=== PATIENT | male | born 1965 | race Caucasian/White ===

== ENCOUNTER 2018-01-29 18:44 | Emergency (ER) | payer OTHER ==
[~2018-01-29] VITALS: Ht 190.5 cm; Wt 149.7 kg
[~2018-01-29 18:44] MED LIST: ALBUTEROL SULF8.5 GM IH; ALLOPURINOL300 MG PO; CIPROFLOXACIN500 MG PO; DILAUDID4 MG PO; FLAGYL250 MG PO; MAGNESIUM CITR296 ML PO
[2018-01-29] MEDS ORDERED: ROSUVASTATIN CA10 MG PO (18:57)
[2018-01-29] MEDS ORDERED: TRAMADOL HCL50 MG PO (19:57)
--- NOTE | 2018-01-30 12:14 | EKG ---
[facility] [address] [place] [address] Signed Normal sinus rhythm Normal ECG No previous ECGs available Confirmed by AVINASH HORNE MD ([id number] on 01/30/2018 12:14:35 PM Electronically Signed By: AVINASH HORNE MD 01/30/18 1214 PATIENT NAME: MOSSRENETTA Electrocardiogram DATE OF : 65 PHYSICIAN: AVINASH HORNE MD REPORT #: [id number] REPORT IS CONFIDENTIAL AND NOT TO BE RELEASED WITHOUT AUTHORIZATION
== END 2018-01-29 20:09 | disposition home or self-care (01) ==
LOC: ED 18:44
DX: R07.89 Other chest pain (principal); Z88.0 Allergy status to penicillin; Z79.899 Other long term (current) drug therapy
CPT/HCPCS: 71046; 80053; 84484; 85025; 85379; 93005; 93010; 99284